=== PATIENT | male | born 1975 | race African-American/Black ===

== ENCOUNTER 2019-11-30 10:03 | Emergency (ER) | payer OTHER ==
[2019-11-30] VITALS (13 sets, daily range): BP systolic 147–163; BP diastolic 84–103
[~2019-11-30] VITALS: Ht 188 cm; Wt 92.0 kg
[2019-11-30 13:00] LABS: BASOPHILS % 0.9 % (0.0-2.0); HEMATOCRIT. 41.5 % (42.0-52.0); HEMOGLOBIN. 13.2 g/dL (14.0-18.0); LYMPHOCYTES % 15.5 % (20.0-50.0); MEAN CORPUSCULAR HEMOGLOBIN 22.8 pg (28.0-32.0); MEAN CORPUSCULAR VOLUME 71.5 fL (80.0-94.0); MEAN PLATELET VOLUME 8.8 fl (7.4-10.4); MONOCYTES % 6.3 % (2.0-8.0); NEUTROPHILS % 75.3 % (40.0-76.0); PLATELET 274 x1000/uL (130-400); RED CELL DISTRIBUTION WIDTH 19.6 % (11.6-14.6)
[2019-11-30 13:02] LABS: PARTIAL THROMBOPLASTIN TIME 28.9 sec (23.4-31.0); PROTHROMBIN TIME 10.3 sec (9.6-11.0)
[2019-11-30 13:05] LABS: CHLORIDE 98 mEq/L (98-107)
[2019-11-30] MEDS ORDERED: CEFAZOLIN 1000MG PREMIX 50 ML IV ONE ×2 (13:15→13:30)
[2019-11-30] MEDS ORDERED: FENTANYL CITRATE/PF 50MCG/ML 2ML VIAL ONE (13:30)
[2019-11-30 13:32] LABS: BG BASE EXCESS 1.1 mmol/L (-2.0-2.0); BG CARBOXYHEMOGLOBIN 6.1 % (0.5-1.5); BG DEOXYHEMOGLOBIN 3.6 % (0.0-5.0); BG FRACTION INSPIRED OXYGEN 21; BG HCO3 ACT 26.6 mmol/L (22.0-26.0); BG METHEMOGLOBIN 0.3 % (0.0-1.5); BG OXYGEN SATURATION 96.2 % (92.0-98.5); BG PCO2 45.8 mmHg (35.0-45.0); BG PH 7.382 (7.350-7.450); BG PO2 89.1 mmHg (75.0-100.0); BG SAMPLE SITE RIGHT BRACHIAL; BG TOTAL HEMOGLOBIN 13.3 g/dL (12.0-18.0); BG VENT MODE ROOM AIR
[2019-11-30] MEDS ORDERED: FENTANYL CITRATE/PF 50MCG/ML 2ML VIAL IV ONE (14:30)
== END 2019-11-30 15:50 | disposition home or self-care (01) ==
LOC: ER 10:03 → CANBEDREQ 16:37
DX: T82.590A Other mechanical complication of surgically created arteriovenous fistula, initial encounter (principal); X58.XXXA Exposure to other specified factors, initial encounter; H40.9 Unspecified glaucoma; Z91.048 Other nonmedicinal substance allergy status
CPT/HCPCS: 36415; 36558; 36600; 71045; 76937; 77001; 80053; 82375; 82805; 83690; 83735; 84100; 84484; 85025; 85610; 85730; 93005; 96365; 96375; 99284; C1750; C1769; C1887; J0690; J3010; Z7610; 99152; 99153; G0500

== ENCOUNTER 2020-04-16 07:23 | Emergency (ER) | payer MEDICAID, OTHER ==
[~2020-04-16] VITALS: Ht 172.7 cm; Wt 100.0 kg
[2020-04-16 08:19] LABS: EOSINOPHILS % 3.4 % (0.0-5.0); HEMATOCRIT. 34.4 % (42.0-52.0); HEMOGLOBIN. 10.7 g/dL (14.0-18.0); LYMPHOCYTES % 16.6 % (20.0-50.0); MEAN CORPUSCULAR HEMOGLOBIN 23.3 pg (28.0-32.0); MEAN CORPUSCULAR VOLUME 74.9 fL (80.0-94.0); MEAN PLATELET VOLUME 8.5 fl (7.4-10.4); MONOCYTES % 6.9 % (2.0-8.0); NEUTROPHILS % 72.1 % (40.0-76.0); PLATELET 226 x1000/uL (130-400); RED BLOOD CELL COUNT 4.59 mill/uL (4.7-6.1); RED CELL DISTRIBUTION WIDTH 30.1 % (11.6-14.6)
[2020-04-16 08:21] LABS: CHLORIDE 99 mEq/L (98-107)
[2020-04-16 08:41] LABS: PLATELET ESTIMATE NORMAL
[2020-04-16 08:42] LABS: INR 1.1; PROTHROMBIN TIME 11.5 sec (9.6-11.0)
[2020-04-16] MEDS ORDERED: HYDROCODONE/ACETAMINOPHEN 5/325MG TABLET PO PRN (11:00)
[2020-04-16] MEDS ORDERED: GUAIFENESIN 200MG/10ML SUGAR FREE UDC PO PRN (11:00)
[2020-04-16] MEDS ORDERED: IPRATROPIUM/ALBUTEROL 0.5-3(2.5)MG/3ML NEB NEB PRN (11:00)
[2020-04-16] MEDS ORDERED: NA PHOS,M-B/NA PHOS,DI-BA ENEMA 118ML PR PRN (11:00)
[2020-04-16] MEDS ORDERED: DOCUSATE SODIUM 100MG CAPSULE PO PRN (11:00)
[2020-04-16] MEDS ORDERED: ENOXAPARIN 40MG/0.4ML SYR SUBCUT SCH ×2 (11:00→17:00)
[2020-04-16] MEDS ORDERED: DIPHENHYDRAMINE 50MG/ML VIAL IV PRN (11:00)
[2020-04-16] MEDS ORDERED: LORAZEPAM 2MG/ML CPJ IV PRN (11:00)
[2020-04-16] MEDS ORDERED: MAGNESIUM/ALUMINUM HYDROXIDE/SIMETHICONE 30ML UDC PO PRN (11:00)
[2020-04-16] MEDS ORDERED: ONDANSETRON HCL 4MG/2ML INJ IV PRN (11:00)
[2020-04-16] MEDS ORDERED: MORPHINE SULFATE 2 MG/ML CPJ (NOT FOR IM USE) IV PRN (11:00)
[2020-04-16] MEDS ORDERED: CLONIDINE 0.1MG TABLET PO PRN (11:00)
[2020-04-16] MEDS ORDERED: ACETAMINOPHEN 325MG TABLET PO PRN (11:00)
[2020-04-16 16:00] VITALS: BP 142/63
[2020-04-21 22:36] LABS: HEPATITIS B SURFACE AB 201.4 mIU/mL
[2020-04-21 22:47] LABS: HEPATITIS B SURFACE ANTIGEN NEGATIVE
[2020-04-21 23:17] LABS: HEPATITIS A AB IGM NEGATIVE (NEGATIVE)
== END 2020-04-16 17:00 | disposition left against medical advice (07) ==
LOC: ER 07:23 → CANBEDREQ 16:44 → ER 17:00
DX: I12.0 Hypertensive chronic kidney disease with stage 5 chronic kidney disease or end stage renal disease (principal); N18.6 End stage renal disease; E46 Unspecified protein-calorie malnutrition; H40.9 Unspecified glaucoma; D63.8 Anemia in other chronic diseases classified elsewhere; E87.70 Fluid overload, unspecified; R06.02 Shortness of breath; Z86.73 Personal history of transient ischemic attack (TIA), and cerebral infarction without residual deficits; Z82.49 Family history of ischemic heart disease and other diseases of the circulatory system; Z99.2 Dependence on renal dialysis; Z83.3 Family history of diabetes mellitus; Z91.15 Patient's noncompliance with renal dialysis; Z91.09 Other allergy status, other than to drugs and biological substances; Z20.828 Contact with and (suspected) exposure to other viral communicable diseases
CPT/HCPCS: 36415; 71045; 80048; 80053; 83880; 85025; 85610; 86705; 86706; 86709; 86803; 87340; 93005; 99291; C9803; J1650; U0003

== ENCOUNTER 2020-06-30 09:26 | Inpatient (IN) | payer MEDICAID ==
[~2020-06-30] VITALS: Ht 190.5 cm; Wt 102.5 kg
[2020-06-30] MEDS ORDERED: LIDOCAINE HCL 1% 20ML VIAL (Pyxis) INJ ONE (11:41)
[2020-06-30 16:01] LABS: BASOPHILS % 0.6 % (0.0-2.0); HEMATOCRIT. 23.4 % (42.0-52.0); HEMOGLOBIN. 7.2 g/dL (14.0-18.0); LYMPHOCYTES % 11.3 % (20.0-50.0); MEAN CORPUSCULAR HEMOGLOBIN 21.1 pg (28.0-32.0); MEAN CORPUSCULAR VOLUME 68.6 fL (80.0-94.0); NEUTROPHILS % 75.1 % (40.0-76.0); PLATELET 258 x1000/uL (130-400); RED BLOOD CELL COUNT 3.41 mill/uL (4.7-6.1); RED CELL DISTRIBUTION WIDTH 22.4 % (11.6-14.6)
[2020-06-30 16:04] LABS: CHLORIDE 96 mEq/L (98-107)
[2020-06-30 16:07] LABS: INR 1.1; PROTHROMBIN TIME 11.3 sec (9.6-11.0)
[2020-06-30] MEDS ORDERED: COR3 MT (17:25)
[2020-06-30] MEDS ORDERED: CINA30 PO (17:25)
[2020-06-30] MEDS ORDERED: FOLI0.4T2 MT (17:25)
[2020-06-30] MEDS ORDERED: APIX5TAB PO (17:25)
[2020-06-30] MEDS ORDERED: NEPVIT PO (17:25)
[2020-06-30 17:31] VITALS: BP 115/33
[2020-06-30] MEDS ORDERED: CLONIDINE 0.1MG TABLET PO PRN (18:15)
[2020-06-30] MEDS ORDERED: GUAIFENESIN 200MG/10ML SUGAR FREE UDC PO PRN (18:15)
[2020-06-30] MEDS ORDERED: HYDROCODONE/ACETAMINOPHEN 5/325MG TABLET PO PRN (18:15)
[2020-06-30] MEDS ORDERED: LORAZEPAM 0.5MG TABLET PO PRN (18:15)
[2020-06-30] MEDS ORDERED: IPRATROPIUM/ALBUTEROL 0.5-3(2.5)MG/3ML NEB HHN PRN (18:15)
[2020-06-30] MEDS ORDERED: ACETAMINOPHEN 325MG TABLET PO PRN ×2 (18:15)
[2020-06-30] MEDS ORDERED: ONDANSETRON HCL 4MG/2ML INJ IV PRN (18:15)
[2020-06-30] MEDS ORDERED: DOCUSATE SODIUM 100MG CAPSULE PO PRN (18:15)
[2020-06-30 20:00] VITALS: BP 128/38
[2020-06-30 20:50] LABS: PLATELET ESTIMATE NORMAL
[2020-06-30] MEDS ORDERED: EPOETIN ALFA 10000UNITS/ML VIAL SUBCUT ONE (22:30)
[2020-06-30] MEDS ORDERED: IRON SUCROSE COMPLEX 100 MG/5 ML ML IV SCH (23:00)
[2020-07-01] VITALS: BP 119/71
[2020-07-01] MEDS ORDERED: EPOETIN ALFA 10000UNITS/ML VIAL SUBCUT NR (01:00)
[2020-07-01 04:00] VITALS: BP 102/36
== END 2020-07-01 06:17 | disposition left against medical advice (07) | DRG 470 ==
LOC: ER 09:26 → 5WST 13:11 → EDBEDREQ 13:18 → ENRESERV 14:32
PROVIDERS: ADMIT Internal Medicine; ATTEND Internal Medicine
PROC: 5A1D70Z Performance of Urinary Filtration, Intermittent, Less than 6 Hours Per Day (ICD-10-PCS; principal; 2020-06-30)
PROC: 0JQ63ZZ Repair Chest Subcutaneous Tissue and Fascia, Percutaneous Approach (ICD-10-PCS; 2020-06-30)
DX: N18.6 End stage renal disease (principal); E87.70 Fluid overload, unspecified; D64.9 Anemia, unspecified; I51.7 Cardiomegaly; E46 Unspecified protein-calorie malnutrition; E87.1 Hypo-osmolality and hyponatremia; Z86.73 Personal history of transient ischemic attack (TIA), and cerebral infarction without residual deficits; Z99.2 Dependence on renal dialysis; Z91.048 Other nonmedicinal substance allergy status; Z79.01 Long term (current) use of anticoagulants; Z79.899 Other long term (current) drug therapy; Z68.28 Body mass index [BMI] 28.0-28.9, adult
CPT/HCPCS: 12001; 36415; 71045; 80053; 85025; 93005; 99285; J0885; J3490

== ENCOUNTER 2020-08-04 12:21 | Emergency (ER) | payer MEDICAID ==
[~2020-08-04] VITALS: Ht 190.5 cm; Wt 94.0 kg
[~2020-08-04 12:21] MED LIST: APIX5TAB PO; CINA30 PO; COR3 MT; FOLI0.4T2 MT; NEPVIT PO
[2020-08-04 14:41] LABS: HEMATOCRIT. 30.3 % (42.0-52.0); MEAN CORPUSCULAR HEMOGLOBIN 22.6 pg (28.0-32.0); MEAN CORPUSCULAR VOLUME 75.7 fL (80.0-94.0); MEAN PLATELET VOLUME 8.6 fl (7.4-10.4); PLATELET 211 x1000/uL (130-400); RED BLOOD CELL COUNT 3.99 mill/uL (4.7-6.1); RED CELL DISTRIBUTION WIDTH 29.7 % (11.6-14.6)
[2020-08-04 14:47] LABS: CHLORIDE 99 mEq/L (98-107)
[2020-08-04 14:49] LABS: PROTHROMBIN TIME 10.9 sec (9.6-11.0)
[2020-08-04 16:38] LABS: PLATELET ESTIMATE NORMAL
[2020-08-04] MEDS ORDERED: ACETAMINOPHEN 325MG TABLET PO PRN ×2 (17:00)
[2020-08-04] MEDS ORDERED: DOCUSATE SODIUM 100MG CAPSULE PO PRN (17:00)
[2020-08-04] MEDS ORDERED: IPRATROPIUM/ALBUTEROL 0.5-3(2.5)MG/3ML NEB HHN PRN (17:00)
[2020-08-04] MEDS ORDERED: LORAZEPAM 0.5MG TABLET PO PRN (17:00)
[2020-08-04] MEDS ORDERED: CLONIDINE 0.1MG TABLET PO PRN (17:00)
[2020-08-04] MEDS ORDERED: ONDANSETRON HCL 4MG/2ML INJ IV PRN (17:00)
[2020-08-04] MEDS ORDERED: HYDROCODONE/ACETAMINOPHEN 5/325MG TABLET PO PRN (17:00)
[2020-08-04] MEDS ORDERED: GUAIFENESIN 200MG/10ML SUGAR FREE UDC PO PRN (17:00)
[2020-08-04 19:00] VITALS: BP 111/54
== END 2020-08-04 20:06 | disposition left against medical advice (07) ==
LOC: ER 12:21 → CANBEDREQ 21:00
DX: Z45.2 Encounter for adjustment and management of vascular access device (principal); Z11.59 Encounter for screening for other viral diseases
CPT/HCPCS: 36415; 71045; 80053; 85025; 87426; 93005; 99285

== ENCOUNTER → 2020-08-19 | Outpatient (CLI) | payer MEDICAID ==
[2020-08-19 09:26] LABS: INR 1.1; PARTIAL THROMBOPLASTIN TIME 30.6 sec (23.4-31.0); PROTHROMBIN TIME 11.2 sec (9.6-11.0)
== END | disposition home or self-care (01) ==
LOC: LAB 08:39
PROVIDERS: ATTEND Internal Medicine
DX: N18.6 End stage renal disease (principal)
CPT/HCPCS: 36415; 84132

== ENCOUNTER → 2020-08-19 | Outpatient (CLI) | payer MEDICAID | END | disposition home or self-care (01) | LOC: LAB 08:05 | PROVIDERS: ATTEND Internal Medicine | DX: Z20.828 Contact with and (suspected) exposure to other viral communicable diseases (principal) | CPT/HCPCS: C9803; U0003 ==

== ENCOUNTER 2020-08-21 09:10 | Emergency (ER) | payer MEDICAID ==
[~2020-08-21] VITALS: Ht 182.9 cm; Wt 88.0 kg
[2020-08-21] MEDS ORDERED: LIDOCAINE HCL 1% 20ML VIAL (Pyxis) INJ ONE (10:12)
[2020-08-21] MEDS ORDERED: SODIUM BICARBONATE 4% (2.4MEQ) 5ML VIAL IV ONE (10:12)
[2020-08-21 11:26] VITALS: BP 100/62
== END 2020-08-21 11:27 | disposition home or self-care (01) ==
LOC: ER 09:10
DX: Z49.01 Encounter for fitting and adjustment of extracorporeal dialysis catheter (principal); N18.6 End stage renal disease; Z99.2 Dependence on renal dialysis; Z86.73 Personal history of transient ischemic attack (TIA), and cerebral infarction without residual deficits
CPT/HCPCS: 36589; 93005; 99283; J3490; Z7610

== ENCOUNTER 2020-11-21 11:29 | Inpatient (IN) | payer MEDICAID ==
[~2020-11-21] VITALS: Ht 188 cm; Wt 104.3 kg
[2020-11-21 12:41] LABS: HEMATOCRIT. 41.7 % (42.0-52.0); HEMOGLOBIN. 13.2 g/dL (14.0-18.0); MEAN CORPUSCULAR HEMOGLOBIN 26.1 pg (28.0-32.0); MEAN CORPUSCULAR VOLUME 82.3 fL (80.0-94.0); MEAN PLATELET VOLUME 9.4 fl (7.4-10.4); PLATELET 179 x1000/uL (130-400); RED BLOOD CELL COUNT 5.07 mill/uL (4.7-6.1); RED CELL DISTRIBUTION WIDTH 19.2 % (11.6-14.6)
[2020-11-21 12:54] LABS: PHOSPHORUS 5.4 mg/dL (2.5-4.9)
[2020-11-21 12:55] LABS: INR 1.1; PROTHROMBIN TIME 11.1 sec (9.6-11.0)
[2020-11-21] MEDS ORDERED: CEFAZOLIN 1000MG PREMIX 50 ML IV SCH (13:00)
[2020-11-21] MEDS ORDERED: ALTEPLASE 2MG/VIAL ITC SCH (13:00)
[2020-11-21 13:05] LABS: PLATELET ESTIMATE NORMAL
[2020-11-21] MEDS ORDERED: SODIUM BICARBONATE 4% (2.4MEQ) 5ML VIAL IV ONE (15:14)
[2020-11-21] MEDS ORDERED: LIDOCAINE HCL 1% 20ML VIAL (Pyxis) INJ ONE (15:14)
[2020-11-21] MEDS ORDERED: ZOLPIDEM TARTRATE 5MG TABLET PO ONE (19:30)
[2020-11-21] MEDS ORDERED: IPRATROPIUM/ALBUTEROL 0.5-3(2.5)MG/3ML NEB HHN PRN (20:45)
[2020-11-21] MEDS ORDERED: HYDRALAZINE 20MG/ML VIAL IV PRN (20:45)
[2020-11-21] MEDS ORDERED: ENOXAPARIN 40MG/0.4ML SYR SUBCUT SCH (20:45)
[2020-11-21] MEDS ORDERED: ACETAMINOPHEN 325MG TABLET PO PRN (20:45)
[2020-11-21] MEDS ORDERED: GUAIFENESIN 200MG/10ML SUGAR FREE UDC PO PRN (20:45)
[2020-11-21] MEDS ORDERED: DIPHENHYDRAMINE 50MG/ML VIAL IV PRN (20:45)
[2020-11-21] MEDS ORDERED: ONDANSETRON HCL 4MG/2ML INJ IV PRN (20:45)
[2020-11-21] MEDS ORDERED: CLONIDINE 0.1MG TABLET PO PRN (20:45)
[2020-11-21] MEDS ORDERED: MAGNESIUM/ALUMINUM HYDROXIDE/SIMETHICONE 30ML UDC PO PRN (20:45)
[2020-11-21] MEDS ORDERED: MORPHINE SULFATE 2 MG/ML CPJ (NOT FOR IM USE) IV PRN (20:45)
[2020-11-21] MEDS ORDERED: DOCUSATE SODIUM 100MG CAPSULE PO PRN (20:45)
[2020-11-21] MEDS ORDERED: LORAZEPAM 2MG/ML CPJ IV PRN (20:45)
[2020-11-21] MEDS ORDERED: HYDROCODONE/ACETAMINOPHEN 10/325MG TABLET PO PRN (20:45)
[2020-11-21] MEDS ORDERED: ENOXAPARIN 30MG/0.3ML SYR SUBCUT SCH (22:00)
[2020-11-21] MEDS: SODIUM CHLORIDE 0.9% INJ 3ML FLUSH IVF SCH (22:00)
[2020-11-21] MEDS: AMLODIPINE 5MG TABLET PO SCH (23:35)
[2020-11-22 00:24] LABS: CREATINE KINASE MB FRACTION 3.8 ng/mL (0.5-3.6)
[2020-11-22 08:00] VITALS: BP 138/84
[2020-11-22] MEDS: AMLODIPINE 5MG TABLET PO SCH ×2 (09:00→14:16)
[2020-11-22 10:20] LABS: HEMATOCRIT. 40.2 % (42.0-52.0); HEMOGLOBIN. 12.8 g/dL (14.0-18.0); MEAN CORPUSCULAR HEMOGLOBIN 26.3 pg (28.0-32.0); MEAN CORPUSCULAR VOLUME 82.8 fL (80.0-94.0); MEAN PLATELET VOLUME 9.5 fl (7.4-10.4); PLATELET 170 x1000/uL (130-400); RED BLOOD CELL COUNT 4.86 mill/uL (4.7-6.1); RED CELL DISTRIBUTION WIDTH 19.3 % (11.6-14.6)
[2020-11-22 10:29] LABS: CHLORIDE 99 mEq/L (98-107)
[2020-11-22 10:42] LABS: CREATINE KINASE 202 IU/L (39-308)
[2020-11-22 10:44] LABS: CREATINE KINASE MB FRACTION 3.6 ng/mL (0.5-3.6)
[2020-11-22 13:09] VITALS: BP 138/84
[2020-11-22] MEDS: SODIUM CHLORIDE 0.9% INJ 3ML FLUSH IVF SCH (14:00)
[2020-11-23 00:05] LABS: PLATELET ESTIMATE NORMAL
== END 2020-11-22 17:20 | disposition left against medical advice (07) | DRG 466 ==
LOC: ER 11:29 → MICUSO 17:40 → 5WST 11-22 03:00
PROVIDERS: ADMIT Internal Medicine; ATTEND Internal Medicine
PROC: 5A1D70Z Performance of Urinary Filtration, Intermittent, Less than 6 Hours Per Day (ICD-10-PCS; principal; 2020-11-21)
PROC: 06H033Z Insertion of Infusion Device into Inferior Vena Cava, Percutaneous Approach (ICD-10-PCS; 2020-11-21)
PROC: B5191ZA Fluoroscopy of Inferior Vena Cava using Low Osmolar Contrast, Guidance (ICD-10-PCS; 2020-11-21)
PROC: B549ZZA Ultrasonography of Inferior Vena Cava, Guidance (ICD-10-PCS; 2020-11-21)
DX: T82.510A Breakdown (mechanical) of surgically created arteriovenous fistula, initial encounter (principal); E87.5 Hyperkalemia; I12.0 Hypertensive chronic kidney disease with stage 5 chronic kidney disease or end stage renal disease; N18.6 End stage renal disease; Z20.822 Contact with and (suspected) exposure to COVID-19; Z79.01 Long term (current) use of anticoagulants; Z79.899 Other long term (current) drug therapy; Z99.2 Dependence on renal dialysis; Z91.048 Other nonmedicinal substance allergy status; Z86.73 Personal history of transient ischemic attack (TIA), and cerebral infarction without residual deficits; Y71.2 Prosthetic and other implants, materials and accessory cardiovascular devices associated with adverse incidents; Y92.89 Other specified places as the place of occurrence of the external cause
CPT/HCPCS: 36415; 36556; 76937; 77001; 80053; 80069; 82550; 82553; 84484; 85025; 87426; 93005; 93970; 99285; C1752; C1769; C1887; J0690; J1642; J1650; J2997; J3490

== ENCOUNTER → 2021-03-09 | Outpatient (CLI) | payer MEDICAID ==
[~2021-03-09] MED LIST changes: -FOLI0.4T2 MT; +FOLI0.4T6 MT
[2021-03-09 10:38] LABS: BASOPHILS % 0.9 % (0.0-2.0); EOSINOPHILS % 3.9 % (0.0-5.0); HEMATOCRIT. 39.2 % (42.0-52.0); HEMOGLOBIN. 12.9 g/dL (14.0-18.0); LYMPHOCYTES % 11.7 % (20.0-50.0); MEAN CORPUSCULAR HEMOGLOBIN 26.8 pg (28.0-32.0); MEAN CORPUSCULAR VOLUME 81.4 fL (80.0-94.0); MEAN PLATELET VOLUME 8.8 fl (7.4-10.4); MONOCYTES % 8.4 % (2.0-8.0); NEUTROPHILS % 75.1 % (40.0-76.0); PLATELET 170 x1000/uL (130-400); RED BLOOD CELL COUNT 4.81 mill/uL (4.7-6.1); RED CELL DISTRIBUTION WIDTH 17.8 % (11.6-14.6)
[2021-03-09 10:48] LABS: PARTIAL THROMBOPLASTIN TIME 28.2 sec (23.4-31.0); PROTHROMBIN TIME 10.9 sec (9.6-11.0)
== END | disposition home or self-care (01) ==
LOC: RAD 10:10
PROVIDERS: ATTEND Internal Medicine Nephrology
DX: L98.8 Other specified disorders of the skin and subcutaneous tissue (principal); Z79.899 Other long term (current) drug therapy; Z98.890 Other specified postprocedural states; Z88.8 Allergy status to other drugs, medicaments and biological substances; Z82.49 Family history of ischemic heart disease and other diseases of the circulatory system
CPT/HCPCS: 36415; 85025; 85610; 85730; 99211; Z7610; 36589

== ENCOUNTER 2021-06-02 08:21 | Emergency (ER) | payer MEDICAID ==
[~2021-06-02] VITALS: Ht 188 cm; Wt 90.0 kg
[~2021-06-02 08:21] MED LIST changes: +Ambien
[2021-06-02 09:32] LABS: BASOPHILS % 1.2 % (0.0-2.0); EOSINOPHILS % 2.9 % (0.0-5.0); HEMATOCRIT. 38.9 % (42.0-52.0); HEMOGLOBIN. 12.5 g/dL (14.0-18.0); LYMPHOCYTES % 10.5 % (20.0-50.0); MEAN CORPUSCULAR HEMOGLOBIN 27.2 pg (28.0-32.0); MEAN CORPUSCULAR VOLUME 84.5 fL (80.0-94.0); MEAN PLATELET VOLUME 8.6 fl (7.4-10.4); NEUTROPHILS % 77.4 % (40.0-76.0); PLATELET 250 x1000/uL (130-400); RED CELL DISTRIBUTION WIDTH 19.4 % (11.6-14.6)
[2021-06-02 09:35] LABS: CHLORIDE 101 mEq/L (98-107)
[2021-06-02 09:38] LABS: PROTHROMBIN TIME 10.9 sec (9.6-11.0)
[2021-06-02 13:36] VITALS: BP 150/54
== END 2021-06-02 13:36 | disposition short-term general hospital (02) ==
LOC: ER 08:21
DX: Z91.15 Patient's noncompliance with renal dialysis (principal); Z91.048 Other nonmedicinal substance allergy status
CPT/HCPCS: 36415; 80053; 85025; 99283; 99285

== ENCOUNTER 2022-04-23 08:36 | Emergency (ER) | payer MEDICAID, OTHER ==
[~2022-04-23] VITALS: Ht 188 cm; Wt 94.0 kg
[2022-04-23 08:38] VITALS: BP 170/60
[2022-04-23] MEDS ORDERED: CEFAZOLIN 1000MG PREMIX 50 ML IV NR (09:15)
[2022-04-23 09:26] LABS: HEMATOCRIT. 28.6 % (42.0-52.0); HEMOGLOBIN. 9.1 g/dL (14.0-18.0); MEAN CORPUSCULAR HEMOGLOBIN 26.3 pg (28.0-32.0); MEAN CORPUSCULAR VOLUME 83.2 fL (80.0-94.0); MEAN PLATELET VOLUME 9.3 fl (7.4-10.4); PLATELET 181 x1000/uL (130-400); RED BLOOD CELL COUNT 3.44 mill/uL (4.7-6.1); RED CELL DISTRIBUTION WIDTH 18.7 % (11.6-14.6)
[2022-04-23 09:27] LABS: CHLORIDE 94 mEq/L (98-107)
[2022-04-23] MEDS ORDERED: PIPERACILLIN/TAZ 3.375G PREMIX 50 ML IV ONE (09:30)
[2022-04-23] MEDS ORDERED: VANCOMYCIN 1G PREMIX 200 ML IV ONE (09:30)
[2022-04-23 09:36] LABS: INR 1.1; PARTIAL THROMBOPLASTIN TIME 32.9 sec (23.4-31.0); PROTHROMBIN TIME 11.8 sec (9.6-11.0)
[2022-04-23 11:41] LABS: PLATELET ESTIMATE NORMAL
== END 2022-04-23 12:22 | disposition short-term general hospital (02) ==
LOC: ER 08:36
DX: T82.49XA Other complication of vascular dialysis catheter, initial encounter (principal); X58.XXXA Exposure to other specified factors, initial encounter; I10 Essential (primary) hypertension; H40.9 Unspecified glaucoma; Z99.2 Dependence on renal dialysis; Z79.899 Other long term (current) drug therapy; Z20.822 Contact with and (suspected) exposure to COVID-19
CPT/HCPCS: 36415; 71045; 80053; 85025; 85610; 85730; 87040; 87426; 93005; 99285; C9803; J3370; J0690; J2543